=== PATIENT | female | born 1955 | race Caucasian/White ===

== ENCOUNTER 2016-07-17 08:28 | Day surgery (SDC) | payer OTHER ==
[~2016-07-17 08:28] MED LIST: PROPOFOL INJ 200 MG/20 ML VIAL IV ONE
[2016-07-17 10:03] VITALS: BP 132/54
--- NOTE | 2016-07-17 12:47 | Operative Report ---
Operative Report DATE OF SURGERY: 07/17/16 Operative Report: The risks, benefits and alternatives of the procedure including risks of bleeding, perforation requiring surgery are explained to the patient in detail and informed consent is obtained. Patient is placed in a left, lateral decubital position. Timeout is called. Propofol medications administered. A rectal examination was done which did not reveal any masses, tears or fissures. An Olympus videoscope was inserted into the patient's rectum. Keeping the lumen in site at all times scope was then gradually advanced all the way to the cecum. Cecum as identified by the usual anatomical landmarks including the ileocecal valve as well as the appendiceal office. Photodocumentation is obtained. Prep is good. Scope was then sequentially pulled back via the rest segments of the colon including the ascending colon, hepatic flexure, transverse colon, splenic flexure, descending colon and finally into the rectosigmoid colon. Retroflexion maneuvers performed. Following the completion of the colonoscopy, an EGD is performed. The risks benefits and alternatives of the procedure explained to the patient in detail and informed consent is obtained that GIF Olympus video scope was inserted into the patient's mouth and hypopharynx the esophagus is identified intubated and insufflated the scope was then advanced through the esophagus stomach and duodenum retroflexion maneuver is done the esophagus stomach and first and second portions of the duodenum examined PREOPERATIVE DIAGNOSIS: Indications for the EGD includes abdominal pain. Indications for the colonoscopy includes change of bowel habits POSTOPERATIVE DIAGNOSIS: Gastritis, duodenitis, hiatal hernia. Internal hemorrhoids. Mild right sided biopsies OPERATION: Colonoscopy with biopsy. EGD with biopsy SURGEON: REGINA MORGAN ANESTHESIA: LMAC TISSUE REMOVED OR ALTERED: Gastric specimens obtained rule out Helicobacter pylori. Right-sided colon specimens obtained rule out collagenous, lymphocytic , microscopic colitis. COMPLICATIONS: None. ESTIMATED BLOOD LOSS: none. INTRAOPERATIVE FINDINGS: As described above. Normal esophagus. No polyps, AVMs , diverticulosis noted PROCEDURE: Patient tolerated the procedure well. No immediate postprocedure complications are noted. Patient is discharged in good condition. Discharge date 07/17/2016. Discharge diet: Regular. Discharge activity: Regular. We'll await on biopsies. Patient does have a 2-3 week follow-up to discuss findings. Patient is instructed to call the office or proceed to the emergency room after any further problems or questions.
== END 2016-07-17 10:15 | disposition home or self-care (01) ==
LOC: END 08:28
PROVIDERS: ATTEND Internal Medicine Gastroenterology
PROC: 0DB68ZX Excision of Stomach, Via Natural or Artificial Opening Endoscopic, Diagnostic (ICD-10-PCS; principal; 2016-07-17 10:30)
PROC: 0DBF8ZX Excision of Right Large Intestine, Via Natural or Artificial Opening Endoscopic, Diagnostic (ICD-10-PCS; 2016-07-17 10:30)
DX: Z86.010 Personal history of colon polyps (principal); K29.80 Duodenitis without bleeding; K29.50 Unspecified chronic gastritis without bleeding; K44.9 Diaphragmatic hernia without obstruction or gangrene; K52.9 Noninfective gastroenteritis and colitis, unspecified; K64.8 Other hemorrhoids; M19.90 Unspecified osteoarthritis, unspecified site; E78.00 Pure hypercholesterolemia, unspecified; J45.909 Unspecified asthma, uncomplicated; K21.9 Gastro-esophageal reflux disease without esophagitis; Z79.899 Other long term (current) drug therapy; Z88.0 Allergy status to penicillin
CPT/HCPCS: 43239; 45380; 88342 ×2; 88305 ×2; J2704; 740

== ENCOUNTER → 2019-05-15 | Outpatient (CLI) | payer OTHER ==
--- NOTE | 2019-05-15 12:24 | RADIOLOGY REPORT (SQ) ---
EXAM DESCRIPTION: U/S ABDOMEN COMPLETE W/DOPPLER COMPLETED DATE/TIME: 05/15/2019 11:24 am REASON FOR STUDY: R16.2 HEPATOMEGALY WITH SPLENOMEGALY, NOT ELSEWHERE CLASSIFIED R16.2 HEPATOMEGALY WITH SPLENOMEGALY, NOT ELSEWHERE CLASSIFI COMPARISON: 01/28/2015 TECHNIQUE: Dynamic and static grayscale images acquired of the abdomen and recorded on PACS. Additio nal selected color Doppler and spectral images recorded. Note: Study does not meet criteria for complete doppler/duplex scan LIMITATIONS: None. FINDINGS: PANCREAS: No masses. Visualized pancreatic duct normal caliber. LIVER: Increased echogenicity. No masses. LIVER VASCULATURE: Normal directional flow of the main portal vein and hepatic veins. GALLBLADDER: Surgically absent. ULTRASOUND-DETECTED FUNES'S SIGN: Not applicable. INTRAHEPATIC DUCTS AND COMMON DUCT: CBD and intrahepatic ducts normal caliber. No filling defects. INFERIOR VENA CAVA: Normal flow. AORTA: No aneurysm. RIGHT KIDNEY: Normal size, 10.8 cm. Normal echogenicity. No solid or suspicious masses. No hyd ronephrosis. No calcifications. LEFT KIDNEY: Normal size, 10.8 cm. Normal echogenicity. No solid or suspicious masses. Small cy st. No hydronephrosis. No calcifications. SPLEEN: Normal size. No solid masses. PERITONEAL AND PLEURAL SPACES: No ascites or effusions. OTHER: No other significant finding. IMPRESSION: Hepatic steatosis. TECHNICAL DOCUMENTATION: JOB ID: [id number] [employer]- All Rights Reserved Reading location - IP/workstation name: [email or web address]
== END ==
LOC: WI 10:12
PROVIDERS: ATTEND Student in an Organized Health Care Education/Training Program
DX: K76.0 Fatty (change of) liver, not elsewhere classified (principal); R16.2 Hepatomegaly with splenomegaly, not elsewhere classified
CPT/HCPCS: 76700; 93976